=== PATIENT | female | born 1985 | race Caucasian/White ===

== ENCOUNTER 2021-04-30 08:00 | Emergency (ER) | payer SELFPAY ==
[~2021-04-30 08:00] MED LIST: ZOFRAN8 MG PO
[2021-04-30] MEDS ORDERED: NAPROXEN500 MG PO (10:24)
[2021-04-30] MEDS ORDERED: NORCO 5-325 TA1 EACH PO (10:24)
[2021-04-30] MEDS ORDERED: AMOXICILLIN875 MG PO (10:24)
== END 2021-04-30 10:45 | disposition home or self-care (01) ==
LOC: FER 08:00
DX: M26.622 Arthralgia of left temporomandibular joint (principal)
CPT/HCPCS: 70486; 93005